=== PATIENT | male | born 1975 | race African-American/Black ===

== ENCOUNTER 2016-12-16 09:56 | Emergency (ER) | payer OTHER ==
--- NOTE | 2016-12-16 10:50 | ER Document Report ---
ED Extremity Problem, Upper - General Chief Complaint: Hand Pain Stated Complaint: LEFT HAND NUMBNESS Time seen by provider: 10:25 Mode of Arrival: Ambulatory Information source: Patient Notes: 41-year-old male presents to ED for numbness and tingling from his left elbow to his left hand on the back of the arm but when he gets to the wrist it is the palm side of the first second third and fourth finger. No change in fine motor no change in strength just numbness and tingling to this area. Radial pulse present and full. TRAVEL OUTSIDE OF THE [place] IN LAST 30 DAYS: No - HPI Patient complains to provider of: Left - Numbness and tingling no pain Onset: Other - 2 days Recent injury: No Quality of pain: Other - Numbness and tingling no pain Pain Level: Denies Context: Other - Take his might have laid on that arm when he was sleeping he is not sure Associated symptoms: None Exacerbated by: Nothing Relieved by: Nothing Similar symptoms previously: No Recently seen / treated by doctor: No - Related Data Allergies/Adverse Reactions: No Known Allergies Allergy (Verified 12/16/16 10:02) Past Medical History - General Information source: Patient - V - Social History Smoking Status: Never Smoker Cigarette use (# per day): No Chew tobacco use (# tins/day): No Smoking Education Provided: No Frequency of alcohol use: Occasional Drug Abuse: None Occupation: OFF[employer] JOB Lives with: Family Family History: CAD, CVA Patient has suicidal ideation: No Patient has homicidal ideation: No - Past Medical History Cardiac Medical History: Reports: None Pulmonary Medical History: Reports: None EENT Medical History: Reports: None Neurological Medical History: Reports: None Endocrine Medical History: Reports: None Renal/ Medical History: Reports: None Malignancy Medical History: Reports None GI Medical History: Reports: None Musculoskeltal Medical History: Reports None Skin Medical History: Reports None Psychiatric Medical History: Reports: None Traumatic Medical History: Reports: None Infectious Medical History: Reports: None Surgical Hx: Negative Past Surgical History: Reports: None - Immunizations Immunizations up to date: Yes Hx Diphtheria, Pertussis, Tetanus Vaccination: Yes Review of Systems - Review of Systems Constitutional: No symptoms reported EENT: No symptoms reported Cardiovascular: No symptoms reported Respiratory: No symptoms reported Gastrointestinal: No symptoms reported Genitourinary: No symptoms reported Male Genitourinary: No symptoms reported Musculoskeletal: Other - Numbness and tingling to his left elbow hand and forearm. Numbness and tingling to the posterior arm elbow and wrist then the numbness and tingling goes to the palm and palm side of fingers 1 through 4 no numbness or tingling to finger #5. Full range of motion can feel me touch the fingers but states it feels different than his other hand Skin: No symptoms reported Hematologic/Lymphatic: No symptoms reported Neurological/Psychological: Numbness, Tingling Physical Exam - Vital signs Vitals: Temp Pulse Resp BP Pulse Ox 98.3 F 67 16 133/80 H 100 12/16/16 10:00 12/16/16 10:00 12/16/16 10:00 12/16/16 10:00 12/16/16 10:00 Interpretation: Normal - General General appearance: Appears well, Alert - HEENT Head: Normocephalic, Atraumatic Eyes: Normal Pupils: PERRL - Respiratory Respiratory status: No respiratory distress Chest status: Nontender Breath sounds: Normal Chest palpation: Normal - Cardiovascular Rhythm: Regular Heart sounds: Normal auscultation Murmur: No - Abdominal Inspection: Normal Distension: No distension Bowel sounds: Normal Tenderness: Nontender Organomegaly: No organomegaly - Back Back: Normal, Nontender - Extremities General upper extremity: Normal inspection, Nontender, Normal color, Normal ROM , Normal temperature, Other - Numbness and tingling to his left elbow hand and forearm. Numbness and tingling to the posterior arm elbow and wrist then the numbness and tingling goes to the palm and palm side of fingers 1 through 4 no numbness or tingling to finger #5. Full range of motion can feel me touch the fingers but states it feels different than his other hand General lower extremity: Normal inspection, Nontender, Normal color, Normal ROM , Normal temperature, Normal weight bearing. No: Kristopher's sign - Neurological Neuro grossly intact: Yes Cognition: Normal Orientation: AAOx4 [place] Coma Scale Eye Opening: Spontaneous Sarbjit Coma Scale Verbal: Oriented Sarbjit Coma Scale Motor: Obeys Commands [place] Coma Scale Total: 15 Speech: Normal Motor strength normal: LUE, RUE, LLE, RLE Sensory: Normal - Psychological Associated symptoms: Normal affect, Normal mood - Skin Skin Temperature: Warm Skin Moisture: Dry Skin Color: Normal Course - Re-evaluation Re-evalutation: 12/16/16 13:10 Discussed patient's symptoms with Dr. Yadav. Patient is in no pain. He does demonstrate different in sensation from right hand to left hand. He does have full range of motion to his hand elbow and wrist. Patient has been instructed to follow-up with orthopedics for further testing. Patient denies any known injuries. No pain or numbness or change in sensation to neck or shoulder. - Vital Signs Vital signs: Temp Pulse Resp BP Pulse Ox 97.8 F 63 18 121/89 H 100 12/16/16 11:08 12/16/16 11:08 12/16/16 11:08 12/16/16 11:08 12/16/16 11:08 Discharge - Discharge Clinical Impression: numbness and tingling to the left elbow , left forearm numb and tingling, left palm & fingers 1 through 4 numb & tingli Condition: Good Disposition: HOME, SELF-CARE Additional Instructions: You were seen today for numbness and tingling in your left hand and forearm and elbow. He denies any injury at this time. He denies any pain at this time. I am recommending you follow up with orthopedics the hand surgeon in the area is Dr. Salgado. I will provide his name and number. FOLLOW-UP CARE: If you have been referred to a physician for follow-up care, call the physician s office for an appointment as you were instructed or within the next two days. If you experience worsening or a significant change in your symptoms, notify the physician immediately or return to the Emergency Department at any time for re-evaluation. Forms: Return to Work Referrals: SYED SALGADO DO [ACTIVE STAFF] - Follow up as needed
[2016-12-16 11:11] VITALS: BP 121/89
== END 2016-12-16 11:10 | disposition home or self-care (01) ==
LOC: ER 09:56
DX: R20.0 Anesthesia of skin (principal); R20.2 Paresthesia of skin; Z82.49 Family history of ischemic heart disease and other diseases of the circulatory system; Z82.3 Family history of stroke
CPT/HCPCS: 99283

== ENCOUNTER 2017-03-26 13:07 | Emergency (ER) | payer OTHER ==
[2017-03-26 13:32] VITALS: BP 128/65
[2017-03-26] MEDS ORDERED: IBUPROFEN 800 MG TABLET PO ONE (14:12)
[2017-03-26] MEDS ORDERED: CYCLOBENZAPRINE HCL 10 MG TABLET PO ONE (14:12)
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
== END 2017-03-26 14:30 | disposition home or self-care (01) ==
LOC: ER 13:07
DX: S39.012A Strain of muscle, fascia and tendon of lower back, initial encounter (principal); S29.012A Strain of muscle and tendon of back wall of thorax, initial encounter; M54.2 Cervicalgia; V43.52XA Car driver injured in collision with other type car in traffic accident, initial encounter
CPT/HCPCS: 99283

== ENCOUNTER → 2020-08-16 | Outpatient (CLI) | payer OTHER ==
[2020-08-16 10:05] VITALS: BP 129/76
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
== END ==
LOC: RDC 09:04
PROVIDERS: ATTEND Registered Nurse
DX: Z20.828 Contact with and (suspected) exposure to other viral communicable diseases (principal)
CPT/HCPCS: 87635; 99201; 99211; C9803

== ENCOUNTER → 2020-10-05 | Outpatient (CLI) | payer OTHER ==
[~2020-10-05] MED LIST: COVID-19 VACCINE (PFIZER)/PF 30 MCG/0.3 ML VIAL IM ONE; EPINEPHRINE INJ/PF 1 MG/1 ML AMPULE IM PRN
--- OUTSIDE RECORDS SUMMARY | 2020-10-08 10:20 | XMS REPORT ---
:1975 [facility] Address [facility] [address] [place] [id number] Care Team Providers Name Role Phone Unavailable Unavailable Unavailable Allergies, Adverse Reactions, Alerts Allergy Allergy Status Severity Reaction(s) Onset Inactive Treating C omments Name Type Date Date Clinician Crab Allergy to Active Hives substance Medications Ordered Filled Start Stop Current Ordering Indication Dosage Frequency Signature Comments Components Medication Medication Date Date Medication? Clinician (SIG) Name Name clotrimazol No clotrimazo e-betametha le-betamet sone 1 hasone 1 %-0.05 % %-0.05 % topical topical cream APPLY cream TO THE APPLY TO AFFECTED THE AND AFFECTED SURROUNDING AND AREAS OF SURROUNDIN SKIN BY G AREAS OF TOPICAL SKIN BY ROUTE 2 TOPICAL TIMES PER ROUTE 2 DAY IN THE TIMES PER MORNING AND DAY IN THE EVENING FOR MORNING 2 WEEKS AND EVENING FOR 2 WEEKS Flonase No 1spray( Q1D Flonase Allergy s) Allergy Relief 50 Relief 50 mcg/actuati mcg/actuat on nasal ion nasal spray,suspe spray,susp nsion [place] ension 1 spray [place] 1 every day spray by every day intranasal by route as intranasal needed. route as needed. Ecotrin Low No 1 Q1D Ecotrin Strength 81 Low mg Strength tablet,ente 81 mg deonte coated tablet,ent Take 1 gene tablet coated every day Take 1 by oral tablet route for every day 365 days. by oral route for 365 days. Fluarix No Fluarix Quad Quad [id number] (PF) 60 mcg (PF) 60 (15 mcg x mcg (15 4)/0.5 mL mcg x IM syringe 4)/0.5 mL IM syringe Problems Condition Condition Condition Status Onset Resolution Last Treatin g Comments Name Details Category Date Date Treatment Clinician Date Lipoma of Lipoma of Problem Active 2017-09 skin Skin 0-09 00:00: 00 Talipes Talipes Problem Active 2017-09 planus Planus 0 00:00: 00 Eruption Eruption Problem Inactive 2017-09 0 00:00: 00 Genital Genital Problem Inactive herpes Herpes simplex Simplex Seasonal Seasonal Problem Active allergic Allergic rhinitis Rhinitis Not on Not on [id number] file file Procedures This patient has no known procedures. Results Test Description Test Time Test Comments Text Results Atomic Results Result Comments lipid panel, blood 2020-09-23 11:11:00 Test Item Value Reference Range Comments TC (<200 mg/dL) (test code = TC (<200 mg/dL)) 181 mg/dL <2 00 mg/dL HDL (40-60 mg/dL) (test code = HDL (40-60 mg/dL)) 62 mg/dL 40-60 mg/dL trig (<150 mg/dL) (test code = trig (<150 mg/dL)) 57 mg/dL <150 mg/dL LDL (<100 mg/dL) (test code = LDL (<100 mg/dL)) 107 mg/dL <100 non-HDL (<130 mg/dL) (test code = non-HDL (<130 mg/dL)) 119 mg/d L <130 mg/dL TC/HDL ratio (4.5 or less) (test code = TC/HDL ratio (4.5 or 1.7 mg/dL 4.5 or less less)) 10yr CHD risk (test code = 10yr CHD risk) % test code: 694799 (test code = test code: 496375) CBC W Auto Differential panel - [id number] 11:09:00 Test Item Value Reference Range Comments WBC (test code = WBC) 4.7 K/uL 4.1-10.9 lym% (test code = lym%) 52.0 % 10.0-58.5 lym# (test code = lym#) 2.4 % 0.6-4.1 mxd# (test code = mxd#) 0.5 % 0.0-1.8 mxd% (test code = mxd%) 10.2 % 0.1-24.0 gran (test code = gran) 1.8 % 2.0-7.8 gran% (test code = gran%) 37.8 % 37.0-92.0 RBC (test code = RBC) 4.88 M/uL 4.20-6.30 HGB (test code = HGB) 14.3 g/dL 14.1-18.1 HCT (test code = HCT) 45.6 % 34.5-53.7 MCV (test code = MCV) 93.5 fL 80.0-97.0 MCH (test code = MCH) 29.3 pg 26.0-32.0 MCHC (test code = MCHC) 31.4 g/dL 31.0-36.0 RDW (test code = RDW) 14.1 % 11.5-14.5 plt (test code = plt) 169 K/uL 140-440 MPV (test code = MPV) 0.0-99.8 SARS-CoV-2 RNA Resp Ql [id number] 00:00:00 Test Item Value Reference Range Comments SARS-CoV-2 RNA Resp Ql Not detected [place] Covid Public Health Case OBI+probe (test code = ID: [id number]) Assessments Condition Name Status Diagnosis Date Treating Clinici an Adult health examination Active 2020-09-23 10:43:32 Active or passive immunization Active 2020-09-23 10:43: 32 Screening for malignant neoplasm of Active 2020-09-23 1 0:43:32 prostate Screening for cardiovascular system Active 2020-09-23 1 0:43:32 disease Mental health screening assessment Active 2020-09-23 10 :43:32 Hyperlipidemia Active 2020-09-23 13:38:54 Hepatitis C screening Active 2020-09-23 13:41:04 Body mass index 25-29 - overweight Active 2020-09-23 13 :57:32 Seasonal allergic rhinitis Active 2020-05-02 08:18:57 Seasonal allergic rhinitis Active 2020-01-30 14:03:29 Seasonal allergic rhinitis Active 2019-04-24 09:11:02 Body mass index 30+ - obesity Active 2019-04-24 09:56:4 0 Seasonal allergic rhinitis Active 2018-12-21 09:17:54 Adult health examination Active 2018-08-23 09:04:57 Immunization Active 2018-08-23 09:04:57 Screening for malignant neoplasm of Active 2018-08-23 0 9:04:57 prostate Screening for cardiovascular system Active 2018-08-23 0 9:04:57 disease Eruption Active 2018-06-21 09:34:06 Pes planus Active 2018-06-21 09:34:22 Lipoma of skin Active 2018-06-21 09:34:40 Encounters Start End Encounter Admission Attending Care Care Encounter Date/Time Date/Time Type Type Clinicians Facility Department ID 2020-09-23 2020-09-23 [facility] [id number] 00:00:00 00:00:00 [facility]k [place] [facility] 11 Amira Burk Medical MD: [address] [place] [address], Ph. 2020-08-12 2020-08-12 [facility] [id number] 00:00:00 00:00:00 2020-05-02 2020-05-02 [facility] [id number] 00:00:00 00:00:00 Rk [facility] 20 Amira Burk MD: [address] [place] [address], Ph. 2020-01-30 2020-01-30 [facility] [id number] 00:00:00 00:00:00 Rk [place] [facility] 19 Amira Burk Medical MD: [address] [place] [address], Ph. 2019-04-24 2019-04-24 [facility] [id number] 00:00:00 00:00:00 [facility] 12 Amira Burk Medical MD: [address] [place] [address], Ph. 2018-12-21 2018-12-21 [facility] [id number] 00:00:00 00:00:00 [facility] [place] [facility] 10 Amira Burk Medical MD: [address] [place] [address], Ph. 2018-08-23 2018-08-23 [facility] [id number] 00:00:00 00:00:00 [facility] [address] [place] [address], Ph. 2018-06-21 2018-06-21 [facility] [id number] 00:00:00 00:00:00 [facility] [address] [place] [address], Ph. Plan of Treatment Planned Activity Planned Date Details Comments Future Scheduled Test [code = ] Future Scheduled Test [code = ] Future Scheduled Test [code = ] Future Appointment 2020-12-23 08:15:00 Therese Block, 25 [facility]; [place] [address] Social History Smoking Status Start Date Stop Date Never Smoker Vital Signs Vital Name Observation Time Observation Value Comments BP Diastolic 2020-09-23 00:00:00 77 mm[Hg] Height 2020-09-23 00:00:00 72 [in_i] BMI (Body Mass Index) 2020-09-23 00:00:00 29.9 kg/m2 BP Systolic 2020-09-23 00:00:00 132 mm[Hg] Body Weight 2020-09-23 00:00:00 220.8 [lb_av] BP Diastolic 2020-05-02 00:00:00 79 mm[Hg] Height 2020-05-02 00:00:00 72 [in_i] BMI (Body Mass Index) 2020-05-02 00:00:00 30.1 kg/m2 BP Systolic 2020-05-02 00:00:00 128 mm[Hg] Body Weight 2020-05-02 00:00:00 222 [lb_av] BP Diastolic 2020-01-30 00:00:00 82 mm[Hg] Height 2020-01-30 00:00:00 72 [in_i] BMI (Body Mass Index) 2020-01-30 00:00:00 29.4 kg/m2 BP Systolic 2020-01-30 00:00:00 142 mm[Hg] Body Weight 2020-01-30 00:00:00 216.6 [lb_av] BP Diastolic 2019-04-24 00:00:00 80 mm[Hg] Height 2019-04-24 00:00:00 72 [in_i] BMI (Body Mass Index) 2019-04-24 00:00:00 30.7 kg/m2 BP Systolic 2019-04-24 00:00:00 132 mm[Hg] Body Weight 2019-04-24 00:00:00 226 [lb_av] BP Diastolic 2018-12-21 00:00:00 76 mm[Hg] Height 2018-12-21 00:00:00 72 [in_i] BMI (Body Mass Index) 2018-12-21 00:00:00 29.4 kg/m2 BP Systolic 2018-12-21 00:00:00 130 mm[Hg] Body Weight 2018-12-21 00:00:00 216.6 [lb_av] BP Diastolic 2018-08-23 00:00:00 83 mm[Hg] Height 2018-08-23 00:00:00 72 [in_i] BMI (Body Mass Index) 2018-08-23 00:00:00 30.2 kg/m2 BP Systolic 2018-08-23 00:00:00 125 mm[Hg] Body Weight 2018-08-23 00:00:00 222.8 [lb_av] BMI (Body Mass Index) 2018-06-21 00:00:00 30.3 kg/m2 BP Systolic 2018-06-21 00:00:00 132 mm[Hg] Body Weight 2018-06-21 00:00:00 223.2 [lb_av] BP Diastolic 2018-06-21 00:00:00 87 mm[Hg] Height 2018-06-21 00:00:00 72 [in_i] Hospital Discharge Instructions 1. Adult health examination CMP, serum or plasma CBC w/ auto diff lipid panel, blood visual acuity well visit, ages 18 to 50: care instructions A healthy lifestyle: care instructions heart-healthy diet: care instructions walking for exercise: care instructions testicular self-exam: care instructions 2. Active or passive immunization influenza (flu) vaccine (inactivated or recombinant): what you need to know td (tetanus, diphtheria) vaccine: what you need to know 3. Screening for malignant neoplasm of prostate prostate cancer screening: care instructions PSA, total, serum or plasma 4. Screening for cardiovascular system disease A healthy heart: care instructions taking aspirin and other antiplatelets safely: care instructions reducingrisk of another heart attack with medicine: care instructions 5. Mental health screening assessment learning about depression learning about mood disorders learning about anxiety disorders 6. Hyperlipidemia high cholesterol: care instructions 7. Hepatitis C screening hepatitis C Ab, serum - Test# [id number] 8. Body mass index 25-29 - overweight learning about healthy weight body mass index: care instructions body mass index information Discussion Note Patient verbalized understanding and agreement with recommended care plan. All questions and concerns were addressed and answered adequately. Follow up visit will address hld, allergy1. Seasonal allergic rhinitis seasonal allergies: care instructions Discussion Note Patient verbalized understanding and agreement with recommended care plan. All questions and concerns were addressed and answered adequately. Follow up visit will address ape1. Seasonal allergic rhinitis seasonal allergies: care instructions Discussion Note Patient verbalized understanding and agreement with recommended care plan. All questions and concerns were addressed and answered adequately. Follow up visit will address allergy rhinitis1. Seasonal allergic rhinitis seasonal allergies: care instructions 2. Body mass index 30+ - obesity body mass index: care instructions learning about healthy weight Discussion Note Patientverbalized understanding and agreement with recommended care plan. All questions and concerns were addressed and answered adequately. Follow up visit will address allergic rhinitis1. Seasonal allergic rhinitis seasonal allergies: care instructions Discussion Note Patient verbalized understanding and agreement with recommended care plan. All questions and concerns were addressed and answered adequately. Follow up visit will address allergy.1. Adult health examination visual acuity well visit, ages 18 to 50: care instructions eating healthy foods: care instructions testicular self-exam: care instructions walking for exercise: care instructions A healthy lifestyle: care instructions Centrum Complete 18 mg-400 mcg tablet 2. Immunization Tdap (tetanus, diphtheria, pertussis) vaccine: what you need to know influenza (flu) vaccine (inactivated or recombinant): what you need to know 3. Screening for malignant neoplasm of prostate prostate cancer screening: care instructions 4. Screening for cardiovascular system disease A healthy heart: care instructions taking aspirin and other antiplateletssafely: care instructions reducing heart attack risk with daily medicine: care instructions CBC w/ auto diff CMP, serum or plasma lipid panel, blood Ecotrin Low Strength 81 mg tablet,enteric coated Discussion Note Patient verbalized understanding and agreement with recommended careplan. All questions and concerns were addressed and answered adequately. Follow up visit will address allergy,1. Eruption rash: care instructions clotrimazole- betamethasone 1 %-0.05 % topical cream 2. Pes planus flatfoot: care instructions certified [place] administrator referral 3. Lipoma of skin lipoma: care instructions Discussion Note Patient verbalized understanding and agreement with recommendedcare plan. All questions and concerns were addressed and answered adequately. Follow up visit will address ape
== END ==
LOC: EMPHEALTH 11:03
PROVIDERS: ATTEND Internal Medicine
DX: Z23 Encounter for immunization (principal)
CPT/HCPCS: 91300